=== PATIENT | female | born 1945 | race Caucasian/White ===

== ENCOUNTER → 2017-11-27 | Outpatient (CLI) | payer MEDICARE, OTHER ==
--- NOTE | 2017-11-27 12:16 | CARD ---
MR#: [id number] Date of Study: 11/27/2017 Ordering Physician: BRYCE CONROY, Referring Physician: BRYCE CONROY Tech: Joseline Hull RDCS APPROVED REPORT EXAM: Two-dimensional and M-mode echocardiogram with Doppler and color Doppler. Other Information Quality : Fair Technically limited study due to body habitus. INDICATION Hypothyroidism 2D DIMENSIONS RVDd2.3 (2.9-3.5cm)Left Atrium(2D)3.4 (1.6-4.0cm) IVSd1.1 (0.7-1.1cm)Aortic Root(2D)3.0 (2.0-3.7cm) LVDd5.3 (3.9-5.9cm)LVOT Diameter2.3 (1.8-2.4cm) PWd1.0 (0.7-1.1cm)LVDs3.7 (2.5-4.0cm) FS (%) 29.6 %SV74.8 ml LVEF(%)56.2 (>50%) Aortic Valve AoV Peak Berny.157.6cm/sAoV VTI28.4cm AO Peak GR.9.9mmHgLVOT Peak Berny.138.4cm/s LVOT VTI 27.12cmAO Mean GR.6mmHg LOU (VMAX)3.44er7RQE (VTI)4.00cm2 Mitral Valve MV E Zfxvgbtt94.8cm/sMV DECEL FGAV024yu MV A Kkhzqcjh93.9cm/sMV ZFP45be E/A Ratio0.6MVA (PHT)3.03cm2 Tricuspid Valve TR P. Uyekjiyg081rh/sRAP ENDZRBBY0yeAi TR Peak Gr.43juLbEHBV09phSa Pulmonary Vein S1 Gdtovnvv07.0cm/sD2 Ufwbtdlt16.8cm/s LEFT VENTRICLE The left ventricle is normal size. There is normal left ventricular wall thickness. The left ventricu lar systolic function is normal and the ejection fraction is within normal range. The Ejection Fracti on is 55-60%. There is normal LV segmental wall motion. Transmitral Doppler flow pattern is Grade I-a bnormal relaxation pattern. RIGHT VENTRICLE The right ventricle is normal size. The right ventricular systolic function is normal. ATRIA The left atrium size is normal. The right atrium size is normal. The interatrial septum is intact wit h no evidence for an atrial septal defect or patent foramen ovale as noted on 2-D or Doppler imaging. AORTIC VALVE The aortic valve is not well visualized. Doppler and Color Flow revealed no significant aortic regurg itation. There is no significant aortic valvular stenosis. MITRAL VALVE The mitral valve is not well visualized. There is no evidence of mitral valve prolapse. There is no m itral valve stenosis. Doppler and Color-flow revealed trace mitral regurgitation. TRICUSPID VALVE The tricuspid valve is not well visualized. Doppler and Color Flow revealed physiological tricuspid r egurgitation. The PA pressure was estimated at 30 mmHg. There is no tricuspid valve stenosis. PULMONIC VALVE The pulmonic valve is not well visualized. Doppler and Color Flow revealed trace pulmonic valvular re gurgitation. There is no pulmonic valvular stenosis. GREAT VESSELS The aortic root is normal in size. The ascending aorta is normal in size. The IVC is normal in size a nd collapses >50% with inspiration. PERICARDIAL EFFUSION There is no evidence of significant pericardial effusion. Critical Notification Critical Value: No <Conclusion> The left ventricular systolic function is normal and the ejection fraction is within normal range. Th e Ejection Fraction is 55-60%. There is normal LV segmental wall motion. Doppler and Color Flow revealed physiological tricuspid regurgitation. The PA pressure was estimated at 30 mmHg. Signed by : Reynaldo Kidd, Electronically Approved : 11/27/2017 12:15:44
--- NOTE | 2017-11-27 16:50 | RAD ---
MR#: [id number] Date of Study: 11/27/2017 Ordering Physician: BRYCE CONROY, Referring Physician: BRYCE CONROY, Tech: Estefany Vaz RDMS, RVT, RTR APPROVED REPORT Patient Location : OUT-PATIENT Indications Varicose Veins Grayscale images of the bilateral saphenofemoral junctions do not reveal any thrombus on limited imag es. The right great saphenous vein measures 5.5 mm and does not show any evidence of reflux. The left gre at saphenous vein measures 4.3 mm and is occluded proximally consistent with a prior history of ablat ion. There are multiple varicosities noted in the lower extremities. No evidence of reflux in the león ateral lesser saphenous veins. Critical Notification Critical Value: No <Conclusion> 1. Prior left great saphenous vein ablation. 2. Negative for reflux in the right greater and lesser saphenous veins. Signed by : Reynaldo Kidd, Electronically Approved : 11/27/2017 16:49:35
== END | disposition home or self-care (01) ==
LOC: ECHO 10:40
PROVIDERS: ATTEND Internal Medicine Cardiovascular Disease
DX: I87.2 Venous insufficiency (chronic) (peripheral) (principal); I86.8 Varicose veins of other specified sites; E03.9 Hypothyroidism, unspecified; I07.1 Rheumatic tricuspid insufficiency
CPT/HCPCS: 93306; 93970

== ENCOUNTER → 2020-05-18 | Outpatient (CLI) | payer MEDICARE, OTHER ==
[~2020-05-18] MED LIST: CELE200C PO; CHOL500021 PO; ESOM40CA PO; LEVO100T5 PO; LORA10TA65 PO; MECO10005 PO
== END ==
LOC: LAB 15:05
PROVIDERS: ATTEND Nurse Anesthetist, Certified Registered
DX: Z01.812 Encounter for preprocedural laboratory examination (principal); Z20.828 Contact with and (suspected) exposure to other viral communicable diseases; K21.9 Gastro-esophageal reflux disease without esophagitis; K92.1 Melena
CPT/HCPCS: U0003

== ENCOUNTER → 2020-05-21 | Day surgery (SDC) | payer MEDICARE, OTHER ==
[~2020-05-21] MED LIST changes: +IPRATRPIUM/ALBUTEROL 0.5/2.5MG 3 ML NEBU. NEB PRN; +IV RINGERS SOLUTION,LACTATED 1,000 ML IV SCH; +LIDOCAINE 2% PF 5 ML VIAL. ONE; +MIDAZOLAM HCL PF 2 MG/2 ML VIAL. IV ONE; +ONDANSETRON PF 4 MG/2 ML VIAL. IV PRN; +PROPOFOL 10,000 MCG/ML (20ML) VIAL IV ONE
[2020-05-21 12:12] VITALS: BP 127/73
--- NOTE | 2020-05-24 16:06 | PATHOLOGY ---
[facility] Accession Number: [id number] . 01 Material submitted: . PART A: stomach - ANTRUM BIOPSY PART B: stomach - GASTRIC POLYP PART C: esophagus - DISTAL ESOPHAGUS. Modifiers: distal PART D: colon - SIGMOID POLYP. Modifiers: sigmoid . 02 Diagnosis: A. Gastric biopsies, antrum: - Chronic gastritis, mild. . B. Gastric biopsy, gastric polyp: - Fundic gland polyp. . C. Esophageal biopsy, distal esophagus: - Segment of hyperplastic squamous esophageal mucosa and gastric mucosa showing mild chronic inflammation, consistent with reflux changes. . D. Colon biopsy, sigmoid polyp: - Hyperplastic polyp. . (JPM:mml; 05/24/2020) [facility] 05/24/2020 1248 Local . 02 Comment: Sections of the gastric antral biopsy show congestion and mild chronic inflammation. A properly-controlled immunoperoxidase stain for Helicobacter is negative for Helicobacter organisms. . Sections of the gastric polyp biopsy reveal a fundic gland polyp. There are no adenomatous changes or evidence of malignancy. . Sections of the distal esophageal biopsy reveal a segment of hyperplastic squamous esophageal mucosa and gastric mucosa showing mild chronic inflammation. The findings are consistent with reflux esophagitis. There is no evidence of Juarez's change, dysplasia or malignancy. . Sections of the sigmoid colon biopsy reveal a hyperplastic polyp. There are no adenomatous changes or evidence of malignancy. . Special stain (A1): Immunoperoxidase stain for Helicobacter . (JPM:mml; 05/24/2020) . 02 Electronically signed: . Gregg Lai MD, Pathologist NPI- [id number] . 01 Gross description: . A. The specimen is received in formalin, labeled "Sarah Grajeda, antrum biopsy". Received are two segments of pale morgan soft tissue ranging in size from 0.4 to 0.5 cm in maximum dimensions. The specimen is submitted entirely in cassette A1. . B. The specimen is received in formalin, labeled "Sarah Grajeda, gastric polyp". Received is a segment of pale morgan soft tissue measuring 0.7 cm in maximum dimensions. The specimen is submitted entirely in cassette B1. . C. The specimen is received in formalin, labeled "Sarah Grajeda, distal esophagus". Received is a segment of pale morgan soft tissue measuring 0.2 cm in maximum dimensions. The specimen is submitted entirely in cassette C1. . D. The specimen is received in formalin, labeled "Sarah Grajeda, sigmoid polyp". Received is a segment of pale morgan soft tissue measuring 0.3 cm in maximum dimensions. The specimen is submitted entirely in cassette D1. (CAA; 05/23/2020) QA/QA 05/23/2020 1052 Local . 02 Pathologist provided ICD-10: K29.50, K31.7, K20.90, K63.5 . 02 CPT . 274673, [id number], 080304, [id number], [id number] Specimen Comment: A courtesy copy of this report has been sent to [phone], [phone] Specimen Comment: [id number] Specimen Comment: Report sent to / DR BROWN Performed at: [facility] [address], [place] [id number] MD Lionel Schroeder MD Phone: [phone] Performed at: 02 [facility] [address], [place] [id number] MD Gregg Lai MD Phone: [phone]
== END | disposition home or self-care (01) ==
LOC: SURG 09:52
PROVIDERS: ATTEND Internal Medicine Gastroenterology
DX: R19.5 Other fecal abnormalities (principal); R12 Heartburn; K64.1 Second degree hemorrhoids; K29.50 Unspecified chronic gastritis without bleeding; K63.5 Polyp of colon; K44.9 Diaphragmatic hernia without obstruction or gangrene; K63.89 Other specified diseases of intestine; K21.00 Gastro-esophageal reflux disease with esophagitis, without bleeding; K22.8 Other specified diseases of esophagus; K22.2 Esophageal obstruction; I87.2 Venous insufficiency (chronic) (peripheral); E03.9 Hypothyroidism, unspecified; Z79.899 Other long term (current) drug therapy; Z88.8 Allergy status to other drugs, medicaments and biological substances; Z98.890 Other specified postprocedural states
CPT/HCPCS: 43239; 45380; J2001; J2704; J7120